=== PATIENT | female | born 1995 ===

== ENCOUNTER 2016-05-21 18:49 | Emergency (ER) | payer OTHER ==
[2016-05-21 19:09] VITALS: BP 107/66
[2016-05-21] MEDS ORDERED: Ibuprofen TAB* 600 MG PO ONE (20:33)
[2016-05-21] MEDS ORDERED: Acetaminophen TAB* 325 MG PO ONE (20:33)
--- NOTE | 2016-05-21 20:37 | UC ---
Respiratory Complaint HPI - History of Current Complaint Chief Complaint: UCRespiratory Stated Complaint: FEVER, AND DIZZINESS Time Seen by Provider: 05/21/16 20:28 Hx Obtained From: Patient Hx Last Menstrual Period: 05/06/16 Onset/Duration: Gradual Onset - started this am with cough (dry). over day she has felt fever. took mucinex cough med only today Timing: Constant Severity Initially: Moderate Severity Currently: Moderate Character: Cough: Nonproductive Aggravating Factors: Nothing Alleviating Factors: OTC Meds - cough syrup Associated Signs And Symptoms: Positive: Fever, Dizziness. Negative: Wheezing, Hemoptysis, Nasal Congestion, Sinus Discomfort - Allergies/Home Medications Allergies/Adverse Reactions: Allergies Allergy/AdvReac Type Severity Reaction Status Date / Time No Known Allergies Allergy Verified 05/21/16 19:09 Home Medications: Home Medications Pseudoephedrine-Guaifenesin [Mucinex D 60-600 mg] 1 tab PO 05/21/16 [History] PMH/Surg Hx/FS Hx/Imm Hx Previously Healthy: Yes Endocrine History Of: Denies: Diabetes, Thyroid Disease Cardiovascular History Of: Denies: Cardiac Disorders, Hypertension Respiratory History Of: Denies: COPD, Asthma GI/ History Of: Denies: Ulcer Psychological History Of: Denies: Anxiety, Depression - Surgical History Surgical History: None - Family History Known Family History: Positive: None - Social History Occupation: Student Lives: With Family Alcohol Use: Occasionally Substance Use Type: None Smoking Status (MU): Never Smoked Tobacco Review of Systems Constitutional: Fever Skin: Negative Eyes: Negative ENT: Sore Throat Respiratory: Cough Cardiovascular: Negative Gastrointestinal: Negative Neurological: Negative Psychological: Negative All Other Systems Reviewed And Are Negative: Yes Physical Exam Triage Information Reviewed: Yes Appearance: Well-Appearing, No Pain Distress, Well-Nourished Vital Signs: Initial Vital Signs Temp 101.5 F 05/21/16 19:05 Pulse 111 05/21/16 19:05 Resp 18 05/21/16 19:05 BP 107/66 05/21/16 19:05 Pulse Ox 99 05/21/16 19:05 Vital Signs Reviewed: Yes Eyes: Positive: Conjunctiva Clear ENT: Positive: Pharynx normal, TMs normal. Negative: Nasal congestion Neck exam: Normal Neck: Positive: No Lymphadenopathy Respiratory Exam: Normal Respiratory: Positive: Lungs clear. Negative: Wheezing - no cough on exam Cardiovascular Exam: Normal Cardiovascular: Positive: RRR Neurological Exam: Normal Neurological: Positive: Alert Psychological Exam: Normal Skin Exam: Normal Skin: Negative: rashes UC Diagnostic Evaluation - Laboratory O2 Sat by Pulse Oximetry: 99 Re-Evaluation - Re-Evaluation First Eval Re-Evaluation Time: 21:30 - pt states she feel sbetter and is ready to go home Change: Improved - Temp decreased from admission (100.6 now) Respiratory Course/Dx - Differential Dx/Diagnosis Differential Diagnosis/HQI/PQRI: Bronchitis, Influenza, Lower Resp Infection, Sinusitis, Other - uri Provider Diagnoses: UPPER RESPIRATORY INFECTION Discharge - Discharge Plan Condition: Improved Disposition: HOME Patient Education Materials: Upper Respiratory Infection (ED) Additional Instructions: Drink plenty of fluids use tylenol (over the counter) 650mg every 4 hours as needed for pain and fever May also use ibuprofen (over the counter) 600-800mg every 6 hours as needed for pain and fever recheck with [facility] or return here if you are no better in 3 days or get worse at any time
== END 2016-05-21 22:11 | disposition home or self-care (01) ==
LOC: UCEAST 18:49
DX: J06.9 Acute upper respiratory infection, unspecified (principal)
CPT/HCPCS: 99202; A9270-GY; G0463